=== PATIENT | female | born 1945 | race Caucasian/White ===

== ENCOUNTER 2018-11-12 05:08 | Day surgery (SDC) | payer OTHER ==
[~2018-11-12 05:08] MED LIST: LOSARTAN POTASS50 MG PO
[2018-11-12] MEDS ORDERED: MACROBID 100 M100 MG PO (11:31)
[2018-11-12] MEDS ORDERED: ULTRACET PO (11:32)
== END 2018-11-12 15:30 | disposition home or self-care (01) ==
LOC: CIR.AMB 05:08
DX: N81.11 Cystocele, midline (principal)